=== PATIENT | male | born 1950 | race Caucasian/White ===

== ENCOUNTER 2019-08-17 10:54 | Outpatient (REF) | payer SELFPAY ==
[2019-08-17 20:51] LABS: Anion Gap 10.6 mmol/L (3-11); BUN 19 mg/dL (7-18); CO2 27.4 mmol/L (21.0-32.0); CREATININE 0.85 mg/dL (0.70-1.30); Calcium 9.1 mg/dL (8.5-10.1); Calculated LDL 135 mg/dL; Chloride 101 mmol/L (98-107); Cholesterol 210 mg/dL (<200); Glucose 84 mg/dL (74-106); HDL Cholesterol 43 mg/dL (40-60); Potassium 4.6 mmol/L (3.5-5.1); Sodium 139 mmol/L (136-145); Triglyceride 164 mg/dL (<150)
== END 2019-08-17 11:14 ==
LOC: NCHCN 10:54
PROVIDERS: PCP Internal Medicine; Visit Provider Internal Medicine
DX: E66.9 Obesity, unspecified (principal); Z13.220 Encounter for screening for lipoid disorders; Z13.228 Encounter for screening for other metabolic disorders
CPT/HCPCS: 80048; 80061

== ENCOUNTER 2019-08-20 12:42 | Outpatient (REF) | payer SELFPAY ==
[2019-08-23 11:10] LABS: PSA, Screening 0.7 ng/mL (0.0-4.5)
== END 2019-08-20 13:02 ==
LOC: NCHCN 12:42
PROVIDERS: PCP Internal Medicine; Visit Provider Internal Medicine
DX: Z12.5 Encounter for screening for malignant neoplasm of prostate (principal)
CPT/HCPCS: 84153

== ENCOUNTER 2020-11-01 12:05 | Outpatient (REF) | payer SELFPAY ==
[2020-11-01 14:14] LABS: Anion Gap 9.9 mmol/L (3-11); BUN 19 mg/dL (7-18); CO2 27.1 mmol/L (21.0-32.0); CREATININE 0.9 mg/dL (0.70-1.30); Calculated LDL 135 mg/dL (<100); Chloride 102 mmol/L (98-107); Cholesterol 215 mg/dL (<200); Glucose 95 mg/dL (74-106); HDL Cholesterol 46 mg/dL (40-60); Potassium 4.5 mmol/L (3.5-5.1); Sodium 139 mmol/L (136-145); Triglyceride 172 mg/dL (<150)
== END 2020-11-01 12:06 | disposition home or self-care (01) ==
LOC: NCHCN 12:05
PROVIDERS: PCP Internal Medicine; Visit Provider Internal Medicine
DX: Z00.00 Encounter for general adult medical examination without abnormal findings (principal); E78.5 Hyperlipidemia, unspecified
CPT/HCPCS: 80048; 80061

== ENCOUNTER 2023-02-04 14:46 | Outpatient (REF) | payer SELFPAY | END 2023-02-04 14:47 | disposition home or self-care (01) | LOC: LBN 14:46 | PROVIDERS: PCP Internal Medicine; Visit Provider Nurse Practitioner Family | DX: L02.414 Cutaneous abscess of left upper limb (principal) | CPT/HCPCS: 87070; 87205 ==

== ENCOUNTER 2023-07-15 16:39 | Outpatient (REF) | payer SELFPAY ==
[2023-07-15 17:27] LABS: HCT 46.8 % (40.0-50.0); HGB 14.8 g/dL (13.5-17.5); MCH 29.7 pg (27.0-33.0); MCHC 31.6 % (32.0-36.0); MCV 94 fL (80-95); MPV 9.9 fL (8.0-11.0); Platelet Count 241 10^3/uL (130-400); RBC 4.99 10^6/uL (4.36-5.78); RDW 13.4 % (11.8-14.1); RDW-SD 46.5 fL; WBC 6.81 10^3/uL (4.4-10.8)
[2023-07-15 17:38] LABS: ALT 33 U/L (16-63); AST 29 U/L (15-37); Albumin 3.7 g/dL (3.4-5.0); Alkaline Phosphatase 116 U/L (46-116); BUN 18 mg/dL (7-18); Bilirubin, Total 0.4 mg/dL (0.2-1.0); Calcium 9.3 mg/dL (8.5-10.1); Calculated LDL 111 mg/dL (<100); Chloride 104 mmol/L (98-107); Cholesterol 196 mg/dL (<200); Estimated GFR 80.47 (mL/min/1.73m2); Glucose 98 mg/dL (74-106); HDL Cholesterol 43 mg/dL (40-60); Sodium 140 mmol/L (136-145); Total Protein 7.8 g/dL (6.4-8.2); Triglyceride 210 mg/dL (<150)
== END 2023-07-15 16:40 | disposition home or self-care (01) ==
LOC: NCHCN 16:39
PROVIDERS: PCP Internal Medicine; Visit Provider Internal Medicine
DX: E78.5 Hyperlipidemia, unspecified (principal); J44.9 Chronic obstructive pulmonary disease, unspecified; R60.0 Localized edema
CPT/HCPCS: 80053; 80061; 85027

== ENCOUNTER 2024-04-15 16:24 | Outpatient (REF) | payer SELFPAY ==
[2024-04-15 15:15] LABS: TSH (W/Ref FT4) 2.02 uIU/mL (0.36-3.74); Vitamin B12 530 pg/mL (193-986)
== END 2024-04-15 16:25 | disposition home or self-care (01) ==
LOC: NCHCN 16:24
PROVIDERS: PCP Internal Medicine; Visit Provider Family Medicine
DX: E78.5 Hyperlipidemia, unspecified (principal); G62.9 Polyneuropathy, unspecified
CPT/HCPCS: 82607; 84443

== ENCOUNTER 2025-05-04 14:46 | Outpatient (REF) | payer SELFPAY ==
[2025-05-04 16:06] LABS: ALT 30 U/L (16-63); AST 28 U/L (15-37); Albumin 3.8 g/dL (3.4-5.0); Alkaline Phosphatase 101 U/L (46-116); Anion Gap 6.9 mmol/L (3-11); BUN 19 mg/dL (7-18); Bilirubin, Total 0.4 mg/dL (0.2-1.0); CO2 29.1 mmol/L (21.0-32.0); Calcium 9.0 mg/dL (8.5-10.1); Calculated LDL 134 mg/dL (<100); Chloride 105 mmol/L (98-107); Cholesterol 208 mg/dL (<200); Estimated GFR 90.18 (mL/min/1.73m2); Glucose 100 mg/dL (74-106); HDL Cholesterol 40 mg/dL (>or=40); Potassium 4.3 mmol/L (3.5-5.1); Sodium 141 mmol/L (136-145); Total Protein 7.5 g/dL (6.4-8.2); Triglyceride 170 mg/dL (<150)
[2025-05-05 09:28] LABS: PSA, Screening 0.6 ng/mL (<=6.5)
== END 2025-05-04 14:47 | disposition home or self-care (01) ==
LOC: NCHCN 14:46
PROVIDERS: PCP Internal Medicine; Visit Provider Internal Medicine
DX: E66.9 Obesity, unspecified (principal); I10 Essential (primary) hypertension; Z12.5 Encounter for screening for malignant neoplasm of prostate
CPT/HCPCS: 80053; 80061; 84153

== ENCOUNTER 2025-08-04 20:44 | Outpatient (REF) | payer SELFPAY ==
[2025-08-04 21:03] LABS: HCT 44.9 % (40.0-50.0); HGB 14.8 g/dL (13.5-17.5); MCH 30.4 pg (27.0-33.0); MCHC 33.0 % (32.0-36.0); MCV 92 fL (80-95); MPV 9.9 fL (8.0-11.0); Platelet Count 252 10^3/uL (130-400); RBC 4.87 10^6/uL (4.36-5.78); RDW 13.3 % (11.8-14.1); RDW-SD 45.4 fL; WBC 8.70 10^3/uL (4.4-10.8)
[2025-08-04 21:25] LABS: Anion Gap 8.7 mmol/L (3-11); BUN 23 mg/dL (9-23); CO2 26.3 mmol/L (20.0-31.0); Calcium 8.8 mg/dL (8.3-10.6); Chloride 105 mmol/L (98-107); Glucose 111 mg/dL (74-106); Potassium 4.0 mmol/L (3.5-5.1); Sodium 140 mmol/L (136-145)
== END 2025-08-04 20:45 | disposition home or self-care (01) ==
LOC: NCHCN 20:44
PROVIDERS: PCP Internal Medicine; Visit Provider Internal Medicine
DX: I10 Essential (primary) hypertension (principal)
CPT/HCPCS: 80048; 85027